=== PATIENT | female | born 1995 | race Caucasian/White ===

== ENCOUNTER 2019-06-08 20:29 | Emergency (ER) | payer SELFPAY ==
[~2019-06-08 20:29] MED LIST: MACRODANTIN100 MG PO
[2019-06-08] MEDS ORDERED: AMOXICILLIN500 MG PO (21:34)
[2019-06-08 22:00] VITALS: BP 120/65
== END 2019-06-08 22:00 | disposition home or self-care (01) | DRG 153 ==
LOC: ED 20:29
DX: J02.9 Acute pharyngitis, unspecified (principal)